=== PATIENT | female | born 1950 | race Two or more races ===

== ENCOUNTER → 2024-12-15 | Emergency (ER) | payer OTHER ==
[~2024-12-15] VITALS: Ht 154.9 cm; Wt 63.5 kg
[~2024-12-15] MED LIST: AMLODIPINE-OLM1 EAC3; ARICEPT10 MG; CAFFEINE; CHILDREN'S ASPI81 MG; DEXILANT60 MG; DICLOFENAC SOD150 ML; ERGOTAMINE; INVEGA SUS234 MG/1.5; LAMOTRIGINE200 MG; PROAIR RESPICL90 MCG; SIMVASTATIN10 MG; TRAZODONE HCL150 MG; TYLENOL325 MG; ZONEGRAN100 MG
== END | disposition home or self-care (01) ==
LOC: ER 12:49
DX: S69.82XA Other specified injuries of left wrist, hand and finger(s), initial encounter (principal); X58.XXXA Exposure to other specified factors, initial encounter; Y93.89 Activity, other specified; Y92.89 Other specified places as the place of occurrence of the external cause; Y99.8 Other external cause status; I10 Essential (primary) hypertension; Z88.0 Allergy status to penicillin; Z88.5 Allergy status to narcotic agent; Z88.9 Allergy status to unspecified drugs, medicaments and biological substances